=== PATIENT | male | born 1975 | race African-American/Black ===

== ENCOUNTER 2020-10-18 18:53 | Inpatient (IN) | payer MEDICAID, OTHER ==
[~2020-10-18] VITALS: Ht 165.1 cm; Wt 110.5 kg
[2020-10-18] MEDS ORDERED: POTASSIUM CHL 20 Meq TABLET PO ONE (20:00)
[2020-10-18] MEDS ORDERED: FUROSEMIDE 40 MG/4 ML VIAL IV ONE (20:00)
[2020-10-18 20:13] LABS: Basophils # (auto) 0.1 10 ^3/uL (0-0.2); Basophils % (auto) 1.4 % (0.0-2.0); Eosinophils # (auto) 0 10 ^3/uL (0-0.8); Eosinophils % (auto) 0.6 % (0.0-7.0); Hematocrit 34.2 % (41.0-53.0); Hemoglobin 11.5 g/dL (13.5-17.5); Lymphocytes # (auto) 1.3 10 ^3/uL (0.4-5.4); Lymphocytes % (auto) 23.9 % (10.0-50.0); Mean Corpuscular Hemoglobin 29.6 pg (28.0-32.0); Mean Corpuscular Hgb Conc. 33.7 g/dL (32.0-36.0); Mean Corpuscular Volume 87.8 fL (80.0-100.0); Monocytes # (auto) 0.7 10 ^3/uL (0-1.3); Monocytes % (auto) 12.6 % (0.0-12.0); Neutrophils # (auto) 3.3 10 ^3/uL (1.6-8.6); Neutrophils % (auto) 61.5 % (37.0-80.0); Nucleated Red Blood Cells % 0.4 %; Platelet Count (auto) 192 10^3/uL (140-450); Red Blood Cells 3.89 10^6/uL (4.5-5.90); Red Cell Distribution Width 17.2 % (11.8-14.3); White Blood Cell 5.3 10^3/uL (4.4-10.8)
[2020-10-18 20:29] LABS: Albumin 3.2 g/dL (3.4-5.0); Anion Gap 14 (5-15); Blood Urea Nitrogen 39 mg/dL (7-18); Calcium 8.1 mg/dL (8.5-10.1); Carbon Dioxide 21 mmol/L (21-32); Chloride 100 mmol/L (98-107); Glucose 82 mg/dL (74-106); Magnesium 2.6 mg/dL (1.6-2.6); Sodium 135 mmol/L (136-145)
[2020-10-18 20:31] LABS: Urine Bacteria NONE SEEN /hpf (None Seen); Urine Blood Negative /uL (Negative); Urine Specific Gravity 1.018 (1.001-1.035); Urine WBC 2 /hpf (0 - 3)
[2020-10-18 20:31] LABS: BUN/Creatinine Ratio 18.7; GFR African American 44 mL/min; GFR Non-African American 37 mL/min
[2020-10-18 20:36] LABS: Alanine Aminotransferase 29 U/L (16-61); Alkaline Phosphatase 279 U/L (45-117); Aspartate Aminotransferase 34 U/L (15-37); Bilirubin, Total 1.3 mg/dL (0.2-1.0); Total Protein 7.8 g/dL (6.4-8.2)
[2020-10-18 20:57] LABS: INR 1.47 (0.9-1.15); Partial Thromboplastin Time 30.2 sec (23.0-31.2)
[2020-10-18] MEDS ORDERED: MORPHINE SULF INJ 2 MG/ML SYRINGE 1ML IV PRN (22:45)
[2020-10-18] MEDS ORDERED: NITROGLYCERIN 0.4 MG SL TAB SL PRN (22:45)
[2020-10-18] MEDS ORDERED: DOCUSATE SOD 100 MG CAP PO PRN (22:45)
[2020-10-19] VITALS (7 sets, daily range): BP systolic 89–125; BP diastolic 61–78
[2020-10-19 07:11] LABS: Basophils # (auto) 0.1 10 ^3/uL (0-0.2); Basophils % (auto) 1.1 % (0.0-2.0); Eosinophils # (auto) 0 10 ^3/uL (0-0.8); Eosinophils % (auto) 0.8 % (0.0-7.0); Hematocrit 34.3 % (41.0-53.0); Hemoglobin 11.6 g/dL (13.5-17.5); Lymphocytes # (auto) 1.5 10 ^3/uL (0.4-5.4); Lymphocytes % (auto) 27.1 % (10.0-50.0); Mean Corpuscular Hemoglobin 29.7 pg (28.0-32.0); Mean Corpuscular Hgb Conc. 33.8 g/dL (32.0-36.0); Mean Corpuscular Volume 87.8 fL (80.0-100.0); Monocytes # (auto) 0.7 10 ^3/uL (0-1.3); Monocytes % (auto) 12.7 % (0.0-12.0); Neutrophils # (auto) 3.2 10 ^3/uL (1.6-8.6); Neutrophils % (auto) 58.3 % (37.0-80.0); Nucleated Red Blood Cells % 0.5 %; Platelet Count (auto) 186 10^3/uL (140-450); Red Cell Distribution Width 16.9 % (11.8-14.3); White Blood Cell 5.4 10^3/uL (4.4-10.8)
[2020-10-19 07:31] LABS: Albumin 3.3 g/dL (3.4-5.0); Calcium 8.3 mg/dL (8.5-10.1)
[2020-10-19 07:37] LABS: BUN/Creatinine Ratio 17.8; Bilirubin, Total 1.6 mg/dL (0.2-1.0); Total Protein 7.8 g/dL (6.4-8.2)
[2020-10-19] MEDS: AMIODARONE HCL 200 MG TAB PO SCH (09:35)
[2020-10-19] MEDS: FAMOTIDINE 20 MG TAB PO SCH (09:35)
[2020-10-19] MEDS: CARVEDILOL 3.125 MG TAB PO SCH ×2 (09:36→22:00)
[2020-10-19] MEDS ORDERED: ENOXAPARIN SOD 40 MG/0.4 ML SYRINGE SC SCH (10:00)
[2020-10-19] MEDS ORDERED: FUROSEMIDE 40 MG/4 ML VIAL IV SCH (10:00)
[2020-10-19] MEDS: FUROSEMIDE 100 MG/10ML VIAL IV SCH ×2 (10:39→18:15)
[2020-10-19] MEDS ORDERED: OPTISON 3ml Vial for INJ IV ONE (11:34)
[2020-10-19] MEDS: ONDANSETRON HCL 4 MG/2 ML VIAL IV PRN (12:29)
[2020-10-19] MEDS: ATORVASTATIN 20 MG TAB PO SCH (22:37)
[2020-10-20 04:28] VITALS: BP 121/79
[2020-10-20] MEDS: FUROSEMIDE 100 MG/10ML VIAL IV SCH ×2 (06:02→18:11)
[2020-10-20] MEDS ORDERED: HEPARIN SODIUM (PORCINE) 5000 UNITS/ML 1ML VIAL IV ONE (07:45)
[2020-10-20] MEDS ORDERED: HEPARIN DRIP/D5W 100UNITS/ML 250 ML IV SCH (08:15)
[2020-10-20 09:00] VITALS: BP 93/68
[2020-10-20] MEDS: AMIODARONE HCL 200 MG TAB PO SCH (09:06)
[2020-10-20] MEDS: FAMOTIDINE 20 MG TAB PO SCH (09:06)
[2020-10-20] MEDS: CARVEDILOL 3.125 MG TAB PO SCH ×2 (09:07→22:00)
[2020-10-20 09:50] LABS: Basophils # (auto) 0.1 10 ^3/uL (0-0.2); Basophils % (auto) 1.8 % (0.0-2.0); Eosinophils # (auto) 0.1 10 ^3/uL (0-0.8); Eosinophils % (auto) 1.8 % (0.0-7.0); Hematocrit 34.3 % (41.0-53.0); Hemoglobin 11.3 g/dL (13.5-17.5); Lymphocytes # (auto) 1.2 10 ^3/uL (0.4-5.4); Lymphocytes % (auto) 23.5 % (10.0-50.0); Mean Corpuscular Hemoglobin 29.2 pg (28.0-32.0); Mean Corpuscular Hgb Conc. 33.1 g/dL (32.0-36.0); Mean Corpuscular Volume 88.2 fL (80.0-100.0); Monocytes # (auto) 0.7 10 ^3/uL (0-1.3); Monocytes % (auto) 13.2 % (0.0-12.0); Neutrophils # (auto) 3.1 10 ^3/uL (1.6-8.6); Neutrophils % (auto) 59.7 % (37.0-80.0); Nucleated Red Blood Cells % 0.7 %; Platelet Count (auto) 178 10^3/uL (140-450); Red Blood Cells 3.88 10^6/uL (4.5-5.90); Red Cell Distribution Width 16.9 % (11.8-14.3); White Blood Cell 5.1 10^3/uL (4.4-10.8)
[2020-10-20 10:02] LABS: BUN/Creatinine Ratio 16.9; Calcium 7.9 mg/dL (8.5-10.1); Magnesium 2.6 mg/dL (1.6-2.6)
[2020-10-20] MEDS: ONDANSETRON HCL 4 MG/2 ML VIAL IV PRN (10:57)
[2020-10-20 11:15] LABS: INR 1.53 (0.9-1.15); Partial Thromboplastin Time 33.3 sec (23.0-31.2)
[2020-10-20] MEDS: HEPARIN DRIP/D5W 100UNITS/ML 250 ML IV SCH (11:34)
[2020-10-20 13:00] VITALS: BP 97/69
[2020-10-20 17:00] VITALS: BP 101/81
[2020-10-20 19:25] LABS: INR 1.59 (0.9-1.15)
[2020-10-20 19:28] LABS: Partial Thromboplastin Time 84.8 sec (23.0-31.2)
[2020-10-20] MEDS ORDERED: WARFARIN SODIUM 10 MG TAB PO ONE (21:30)
[2020-10-20 22:00] VITALS: BP 113/81
[2020-10-20] MEDS: ATORVASTATIN 20 MG TAB PO SCH (22:12)
[2020-10-21] MEDS: ONDANSETRON HCL 4 MG/2 ML VIAL IV PRN ×2 (00:42→18:21)
[2020-10-21 02:26] LABS: Basophils # (auto) 0.1 10 ^3/uL (0-0.2); Basophils % (auto) 1.9 % (0.0-2.0); Eosinophils # (auto) 0.1 10 ^3/uL (0-0.8); Eosinophils % (auto) 1.4 % (0.0-7.0); Hematocrit 35.7 % (41.0-53.0); Hemoglobin 11.7 g/dL (13.5-17.5); Lymphocytes # (auto) 1.5 10 ^3/uL (0.4-5.4); Lymphocytes % (auto) 25.8 % (10.0-50.0); Mean Corpuscular Hemoglobin 28.9 pg (28.0-32.0); Mean Corpuscular Hgb Conc. 32.8 g/dL (32.0-36.0); Mean Corpuscular Volume 88.1 fL (80.0-100.0); Monocytes # (auto) 0.8 10 ^3/uL (0-1.3); Monocytes % (auto) 13.7 % (0.0-12.0); Neutrophils # (auto) 3.4 10 ^3/uL (1.6-8.6); Neutrophils % (auto) 57.2 % (37.0-80.0); Nucleated Red Blood Cells % 1.2 %; Platelet Count (auto) 202 10^3/uL (140-450); Red Blood Cells 4.05 10^6/uL (4.5-5.90); Red Cell Distribution Width 16.8 % (11.8-14.3)
[2020-10-21 02:51] LABS: INR 1.57 (0.9-1.15)
[2020-10-21 02:57] LABS: Partial Thromboplastin Time 71.1 sec (23.0-31.2)
[2020-10-21 05:00] VITALS: BP 100/73
[2020-10-21] MEDS: FUROSEMIDE 100 MG/10ML VIAL IV SCH ×2 (06:05→17:34)
[2020-10-21 08:48] VITALS: BP 89/65
[2020-10-21] MEDS: FAMOTIDINE 20 MG TAB PO SCH (10:42)
[2020-10-21] MEDS: AMIODARONE HCL 200 MG TAB PO SCH (10:47)
[2020-10-21] MEDS: CARVEDILOL 3.125 MG TAB PO SCH ×2 (10:47→22:41)
[2020-10-21] MEDS: HEPARIN DRIP/D5W 100UNITS/ML 250 ML IV SCH (11:30)
[2020-10-21 11:41] LABS: INR 1.46 (0.9-1.15); Partial Thromboplastin Time 61.5 sec (23.0-31.2)
[2020-10-21 12:48] VITALS: BP 92/68
[2020-10-21] MEDS ORDERED: WARFARIN SODIUM 2.5 MG TAB PO ONE (17:00)
[2020-10-21 17:15] VITALS: BP 94/60
[2020-10-21 18:08] LABS: INR 1.47 (0.9-1.15); Partial Thromboplastin Time 57.7 sec (23.0-31.2)
[2020-10-21 22:00] VITALS: BP 102/75
[2020-10-21] MEDS: ATORVASTATIN 20 MG TAB PO SCH (22:42)
[2020-10-22 03:05] VITALS: BP 165/81
[2020-10-22 05:00] VITALS: BP 107/70
[2020-10-22] MEDS: FUROSEMIDE 100 MG/10ML VIAL IV SCH ×2 (06:15→18:12)
[2020-10-22 07:35] LABS: INR 1.71 (0.9-1.15); Partial Thromboplastin Time 59.5 sec (23.0-31.2)
[2020-10-22] MEDS: HEPARIN DRIP/D5W 100UNITS/ML 250 ML IV SCH (07:57)
[2020-10-22 08:46] VITALS: BP 99/67
[2020-10-22] MEDS: CARVEDILOL 3.125 MG TAB PO SCH ×2 (10:00→22:00)
[2020-10-22] MEDS: AMIODARONE HCL 200 MG TAB PO SCH (11:05)
[2020-10-22] MEDS: FAMOTIDINE 20 MG TAB PO SCH (11:05)
[2020-10-22 13:24] VITALS: BP 117/76
[2020-10-22 16:45] VITALS: BP 112/59
[2020-10-22] MEDS ORDERED: WARFARIN SODIUM 2.5 MG TAB PO ONE (17:00)
[2020-10-22 22:00] VITALS: BP 115/69
[2020-10-22] MEDS: ATORVASTATIN 20 MG TAB PO SCH (22:04)
[2020-10-22] MEDS: TEMAZEPAM 15 MG CAP PO PRN (22:06)
[2020-10-23 05:00] VITALS: BP 105/70
[2020-10-23] MEDS: FUROSEMIDE 100 MG/10ML VIAL IV SCH ×2 (05:32→18:16)
[2020-10-23 08:51] LABS: Basophils # (auto) 0.1 10 ^3/uL (0-0.2); Basophils % (auto) 1.5 % (0.0-2.0); Eosinophils # (auto) 0.1 10 ^3/uL (0-0.8); Eosinophils % (auto) 1.3 % (0.0-7.0); Hematocrit 36.4 % (41.0-53.0); Hemoglobin 11.8 g/dL (13.5-17.5); Lymphocytes # (auto) 1.6 10 ^3/uL (0.4-5.4); Lymphocytes % (auto) 33.4 % (10.0-50.0); Mean Corpuscular Hemoglobin 28.4 pg (28.0-32.0); Mean Corpuscular Hgb Conc. 32.4 g/dL (32.0-36.0); Mean Corpuscular Volume 87.5 fL (80.0-100.0); Monocytes # (auto) 0.6 10 ^3/uL (0-1.3); Neutrophils # (auto) 2.5 10 ^3/uL (1.6-8.6); Neutrophils % (auto) 51.8 % (37.0-80.0); Nucleated Red Blood Cells % 1.1 %; Platelet Count (auto) 213 10^3/uL (140-450); Red Blood Cells 4.16 10^6/uL (4.5-5.90); White Blood Cell 4.8 10^3/uL (4.4-10.8)
[2020-10-23 09:00] VITALS: BP 104/69
[2020-10-23 09:47] LABS: Potassium 3.7 mmol/L (3.5-5.1)
[2020-10-23] MEDS: PANTOPRAZOLE 40 MG/10 ML VIAL INJ IV SCH (09:54)
[2020-10-23] MEDS: AMIODARONE HCL 200 MG TAB PO SCH (09:55)
[2020-10-23] MEDS: CARVEDILOL 3.125 MG TAB PO SCH ×2 (09:55→22:03)
[2020-10-23 09:58] LABS: INR 2.36 (0.9-1.15)
[2020-10-23 10:01] LABS: BUN/Creatinine Ratio 16.7; Magnesium 2.8 mg/dL (1.6-2.6)
[2020-10-23 10:04] LABS: Partial Thromboplastin Time 98.1 sec (23.0-31.2)
[2020-10-23 13:00] VITALS: BP 95/71
[2020-10-23 17:00] VITALS: BP 105/74
[2020-10-23] MEDS ORDERED: WARFARIN SODIUM 1 MG TAB PO ONE (17:00)
[2020-10-23] MEDS: metOLazone 5 MG TAB PO SCH (17:30)
[2020-10-23 22:00] VITALS: BP 109/82
[2020-10-23] MEDS: ATORVASTATIN 20 MG TAB PO SCH (22:03)
[2020-10-24 05:00] VITALS: BP 110/81
[2020-10-24] MEDS: metOLazone 5 MG TAB PO SCH ×2 (05:46→17:25)
[2020-10-24] MEDS: FUROSEMIDE 100 MG/10ML VIAL IV SCH ×2 (06:30→18:00)
[2020-10-24 08:30] VITALS: BP 110/71
[2020-10-24] MEDS: PANTOPRAZOLE 40 MG/10 ML VIAL INJ IV SCH (09:37)
[2020-10-24] MEDS: AMIODARONE HCL 200 MG TAB PO SCH (09:37)
[2020-10-24] MEDS: CARVEDILOL 3.125 MG TAB PO SCH ×2 (09:37→21:33)
[2020-10-24 09:51] LABS: Basophils # (auto) 0.1 10 ^3/uL (0-0.2); Basophils % (auto) 1.4 % (0.0-2.0); Eosinophils # (auto) 0 10 ^3/uL (0-0.8); Eosinophils % (auto) 0.9 % (0.0-7.0); Hematocrit 33.2 % (41.0-53.0); Hemoglobin 10.7 g/dL (13.5-17.5); Lymphocytes # (auto) 0.9 10 ^3/uL (0.4-5.4); Lymphocytes % (auto) 23.1 % (10.0-50.0); Mean Corpuscular Hemoglobin 28.3 pg (28.0-32.0); Mean Corpuscular Hgb Conc. 32.2 g/dL (32.0-36.0); Mean Corpuscular Volume 87.7 fL (80.0-100.0); Monocytes # (auto) 0.7 10 ^3/uL (0-1.3); Neutrophils # (auto) 2.4 10 ^3/uL (1.6-8.6); Neutrophils % (auto) 57.6 % (37.0-80.0); Nucleated Red Blood Cells % 0.7 %; Platelet Count (auto) 189 10^3/uL (140-450); Red Blood Cells 3.79 10^6/uL (4.5-5.90); Red Cell Distribution Width 16.9 % (11.8-14.3); White Blood Cell 4.1 10^3/uL (4.4-10.8)
[2020-10-24 10:05] LABS: INR 3.39 (0.9-1.15); Partial Thromboplastin Time 41.2 sec (23.0-31.2)
[2020-10-24 10:07] LABS: Potassium 3.1 mmol/L (3.5-5.1)
[2020-10-24 10:15] LABS: BUN/Creatinine Ratio 17.8; Calcium 8.1 mg/dL (8.5-10.1); Magnesium 2.6 mg/dL (1.6-2.6)
[2020-10-24 12:30] VITALS: BP 103/71
[2020-10-24] MEDS: POTASSIUM CHL 20 Meq TABLET PO SCH (16:03)
[2020-10-24 16:53] VITALS: BP 100/70
[2020-10-24] MEDS: ATORVASTATIN 20 MG TAB PO SCH (21:34)
[2020-10-24 22:00] VITALS: BP 84/55
[2020-10-25 05:00] VITALS: BP 97/73
[2020-10-25] MEDS: metOLazone 5 MG TAB PO SCH ×2 (05:19→17:45)
[2020-10-25] MEDS: FUROSEMIDE 100 MG/10ML VIAL IV SCH ×2 (06:00→18:00)
[2020-10-25 07:16] LABS: Basophils # (auto) 0 10 ^3/uL (0-0.2); Basophils % (auto) 1.1 % (0.0-2.0); Eosinophils # (auto) 0 10 ^3/uL (0-0.8); Eosinophils % (auto) 0.8 % (0.0-7.0); Hematocrit 32.3 % (41.0-53.0); Hemoglobin 10.8 g/dL (13.5-17.5); Lymphocytes # (auto) 0.9 10 ^3/uL (0.4-5.4); Lymphocytes % (auto) 21.9 % (10.0-50.0); Mean Corpuscular Hemoglobin 29.3 pg (28.0-32.0); Mean Corpuscular Hgb Conc. 33.5 g/dL (32.0-36.0); Mean Corpuscular Volume 87.5 fL (80.0-100.0); Monocytes # (auto) 0.7 10 ^3/uL (0-1.3); Monocytes % (auto) 17.2 % (0.0-12.0); Neutrophils # (auto) 2.4 10 ^3/uL (1.6-8.6); Nucleated Red Blood Cells % 0.7 %; Platelet Count (auto) 180 10^3/uL (140-450); Red Blood Cells 3.69 10^6/uL (4.5-5.90); Red Cell Distribution Width 16.9 % (11.8-14.3); White Blood Cell 4.1 10^3/uL (4.4-10.8)
[2020-10-25 07:26] LABS: INR 3.15 (0.9-1.15); Partial Thromboplastin Time 43.4 sec (23.0-31.2)
[2020-10-25 07:32] LABS: Potassium 3.3 mmol/L (3.5-5.1)
[2020-10-25 07:54] LABS: BUN/Creatinine Ratio 18.9; Magnesium 2.5 mg/dL (1.6-2.6)
[2020-10-25 08:30] VITALS: BP 110/73
[2020-10-25] MEDS: CARVEDILOL 3.125 MG TAB PO SCH ×2 (10:00→21:02)
[2020-10-25] MEDS: PANTOPRAZOLE 40 MG/10 ML VIAL INJ IV SCH (10:23)
[2020-10-25] MEDS: AMIODARONE HCL 200 MG TAB PO SCH (10:24)
[2020-10-25] MEDS: POTASSIUM CHL 20 Meq TABLET PO SCH ×2 (10:24→21:02)
[2020-10-25] MEDS ORDERED: POTASSIUM CHL 20 Meq TABLET PO ONE (11:00)
[2020-10-25 12:30] VITALS: BP 114/76
[2020-10-25 16:45] VITALS: BP 104/55
[2020-10-25] MEDS ORDERED: WARFARIN SODIUM 1 MG TAB PO ONE (17:00)
[2020-10-25] MEDS: ATORVASTATIN 20 MG TAB PO SCH (21:01)
[2020-10-25] MEDS: TEMAZEPAM 15 MG CAP PO PRN (21:01)
[2020-10-25 22:00] VITALS: BP 89/66
[2020-10-26] VITALS: BP 110/75
[2020-10-26 05:00] VITALS: BP 155/68
[2020-10-26] MEDS: metOLazone 5 MG TAB PO SCH ×2 (05:25→17:52)
[2020-10-26] MEDS: FUROSEMIDE 100 MG/10ML VIAL IV SCH ×2 (05:40→18:25)
[2020-10-26 06:16] LABS: Basophils # (auto) 0.1 10 ^3/uL (0-0.2); Basophils % (auto) 1.6 % (0.0-2.0); Eosinophils # (auto) 0.1 10 ^3/uL (0-0.8); Eosinophils % (auto) 1.3 % (0.0-7.0); Hematocrit 32.8 % (41.0-53.0); Hemoglobin 11.1 g/dL (13.5-17.5); Lymphocytes # (auto) 1.2 10 ^3/uL (0.4-5.4); Lymphocytes % (auto) 28.6 % (10.0-50.0); Mean Corpuscular Hemoglobin 29.2 pg (28.0-32.0); Mean Corpuscular Hgb Conc. 33.7 g/dL (32.0-36.0); Mean Corpuscular Volume 86.6 fL (80.0-100.0); Monocytes # (auto) 0.7 10 ^3/uL (0-1.3); Monocytes % (auto) 15.3 % (0.0-12.0); Neutrophils # (auto) 2.3 10 ^3/uL (1.6-8.6); Neutrophils % (auto) 53.2 % (37.0-80.0); Platelet Count (auto) 183 10^3/uL (140-450); Red Blood Cells 3.78 10^6/uL (4.5-5.90); Red Cell Distribution Width 16.5 % (11.8-14.3); White Blood Cell 4.3 10^3/uL (4.4-10.8)
[2020-10-26 06:30] LABS: INR 2.82 (0.9-1.15)
[2020-10-26 06:33] LABS: BUN/Creatinine Ratio 20.2; Magnesium 2.4 mg/dL (1.6-2.6); Potassium 4.2 mmol/L (3.5-5.1)
[2020-10-26] MEDS: ONDANSETRON HCL 4 MG/2 ML VIAL IV PRN (08:06)
[2020-10-26 08:39] VITALS: BP 110/76
[2020-10-26] MEDS: CARVEDILOL 3.125 MG TAB PO SCH ×2 (10:00→21:56)
[2020-10-26] MEDS: PANTOPRAZOLE 40 MG/10 ML VIAL INJ IV SCH (10:13)
[2020-10-26] MEDS: POTASSIUM CHL 20 Meq TABLET PO SCH ×2 (10:14→21:54)
[2020-10-26] MEDS: AMIODARONE HCL 200 MG TAB PO SCH (10:14)
[2020-10-26 12:44] VITALS: BP 104/74
[2020-10-26 16:56] VITALS: BP 108/75
[2020-10-26] MEDS ORDERED: WARFARIN SODIUM 2 MG TAB PO ONE (17:00)
[2020-10-26 21:42] VITALS: BP 92/62
[2020-10-26] MEDS: ATORVASTATIN 20 MG TAB PO SCH (21:54)
[2020-10-26] MEDS: TEMAZEPAM 15 MG CAP PO PRN (21:58)
[2020-10-27] MEDS: metOLazone 5 MG TAB PO SCH ×4 (05:37→17:51)
[2020-10-27 05:56] VITALS: BP 114/74
[2020-10-27] MEDS: FUROSEMIDE 100 MG/10ML VIAL IV SCH (06:45)
[2020-10-27 08:15] VITALS: BP 101/80
[2020-10-27 09:00] VITALS: BP 101/65
[2020-10-27] MEDS: AMIODARONE HCL 200 MG TAB PO SCH (09:43)
[2020-10-27] MEDS: PANTOPRAZOLE 40 MG/10 ML VIAL INJ IV SCH (09:44)
[2020-10-27] MEDS: POTASSIUM CHL 20 Meq TABLET PO SCH (09:44)
[2020-10-27] MEDS: CARVEDILOL 3.125 MG TAB PO SCH (09:45)
[2020-10-27 12:02] LABS: INR 2.57 (0.9-1.15); Partial Thromboplastin Time 41.3 sec (23.0-31.2)
[2020-10-27 12:49] VITALS: BP 102/78
[2020-10-27 13:18] LABS: Basophils # (auto) 0.1 10 ^3/uL (0-0.2); Basophils % (auto) 1.5 % (0.0-2.0); Eosinophils # (auto) 0 10 ^3/uL (0-0.8); Eosinophils % (auto) 0.7 % (0.0-7.0); Hematocrit 34.6 % (41.0-53.0); Hemoglobin 11.4 g/dL (13.5-17.5); Lymphocytes # (auto) 1.2 10 ^3/uL (0.4-5.4); Lymphocytes % (auto) 26.6 % (10.0-50.0); Mean Corpuscular Hemoglobin 28.6 pg (28.0-32.0); Mean Corpuscular Volume 86.7 fL (80.0-100.0); Monocytes # (auto) 0.8 10 ^3/uL (0-1.3); Monocytes % (auto) 16.8 % (0.0-12.0); Neutrophils # (auto) 2.6 10 ^3/uL (1.6-8.6); Neutrophils % (auto) 54.4 % (37.0-80.0); Nucleated Red Blood Cells % 0.4 %; Platelet Count (auto) 210 10^3/uL (140-450); Red Blood Cells 3.99 10^6/uL (4.5-5.90); Red Cell Distribution Width 16.7 % (11.8-14.3); White Blood Cell 4.7 10^3/uL (4.4-10.8)
[2020-10-27 13:42] LABS: Albumin 3.2 g/dL (3.4-5.0)
[2020-10-27 15:55] VITALS: BP 104/78
[2020-10-27] MEDS ORDERED: WARFARIN SODIUM 2 MG TAB PO ONE (17:00)
[2020-10-27 17:57] VITALS: BP 104/78
[2020-10-27] MEDS ORDERED: FUROSEMIDE 20 MG TAB PO SCH (18:00)
== END 2020-10-27 19:20 | disposition home health service (06) | DRG 194 ==
LOC: EDBD 18:53 → ER 18:55 → TELE 18:56 → TELE-CENTR 23:28
PROVIDERS: ADMIT Nurse Practitioner; ATTEND Nurse Practitioner
DX: I13.0 Hypertensive heart and chronic kidney disease with heart failure and stage 1 through stage 4 chronic kidney disease, or unspecified chronic kidney disease (principal); N17.9 Acute kidney failure, unspecified; Z20.822 Contact with and (suspected) exposure to COVID-19; E03.9 Hypothyroidism, unspecified; E66.9 Obesity, unspecified; E78.5 Hyperlipidemia, unspecified; E83.51 Hypocalcemia; E88.09 Other disorders of plasma-protein metabolism, not elsewhere classified; E87.6 Hypokalemia; I50.23 Acute on chronic systolic (congestive) heart failure; N18.9 Chronic kidney disease, unspecified; Z83.3 Family history of diabetes mellitus; Z91.14 Patient's other noncompliance with medication regimen; Z87.891 Personal history of nicotine dependence; Z91.19 Patient's noncompliance with other medical treatment and regimen; Z95.810 Presence of automatic (implantable) cardiac defibrillator; Z68.41 Body mass index [BMI] 40.0-44.9, adult; I51.3 Intracardiac thrombosis, not elsewhere classified
CPT/HCPCS: 36415; 71045; 76705; 80048; 80053; 81001; 82040; 82565; 83690; 83735; 83880; 84484; 85025; 85610; 85730; 87081; 87426; 93005; 93306; 93971; 96374; 97110; 97116; 97163; 97530; C9113; G0378; J2405; Q9956

== ENCOUNTER 2020-10-28 13:12 | Emergency (ER) | payer MEDICAID ==
[~2020-10-28] VITALS: Ht 165.1 cm; Wt 108.9 kg
[2020-10-28] MEDS ORDERED: diphenhdrAMINE HCL 50 MG/1 ML VL IM ONE (16:00)
[2020-10-28 17:46] VITALS: BP 95/61
== END 2020-10-28 17:43 | disposition home or self-care (01) ==
LOC: EDBD 13:12 → ER 13:12
DX: L23.9 Allergic contact dermatitis, unspecified cause (principal); I13.0 Hypertensive heart and chronic kidney disease with heart failure and stage 1 through stage 4 chronic kidney disease, or unspecified chronic kidney disease; N18.9 Chronic kidney disease, unspecified; I50.89 Other heart failure; J44.9 Chronic obstructive pulmonary disease, unspecified
CPT/HCPCS: 96372; 99283; J1200